=== PATIENT | male | born 1960 | race Caucasian/White ===

== ENCOUNTER 2019-09-15 14:51 | Outpatient (REF) | payer OTHER, SELFPAY ==
[2019-09-17 10:18] LABS: PSA, Screening 0.8 ng/mL (0.0-3.5)
== END 2019-09-15 15:11 ==
LOC: NCHCN 14:51
PROVIDERS: PCP Specialist/Technologist Athletic Trainer; Visit Provider Specialist/Technologist Athletic Trainer
DX: Z12.5 Encounter for screening for malignant neoplasm of prostate (principal)
CPT/HCPCS: 84153

== ENCOUNTER 2019-10-06 08:55 | Outpatient (REF) | payer OTHER, SELFPAY ==
[2019-10-06 12:30] LABS: Calculated LDL 112 mg/dL (<100); Cholesterol 179 mg/dL (<200); Glucose 97 mg/dL (74-106); HDL Cholesterol 51 mg/dL (40-60); Triglyceride 82 mg/dL (<150)
[2019-10-06 13:12] LABS: Vitamin D 25 Total 29.3 ng/ml (30-100)
== END 2019-10-06 09:15 ==
LOC: NCHCN 08:55
PROVIDERS: PCP Specialist/Technologist Athletic Trainer; Visit Provider Specialist/Technologist Athletic Trainer
DX: Z00.00 Encounter for general adult medical examination without abnormal findings (principal); E55.9 Vitamin D deficiency, unspecified; Z13.1 Encounter for screening for diabetes mellitus; Z13.220 Encounter for screening for lipoid disorders
CPT/HCPCS: 80061; 82306; 82947

== ENCOUNTER 2021-10-19 16:11 | Outpatient (REF) | payer MEDICAID, SELFPAY ==
[2021-10-19 20:51] LABS: HCT 44.8 % (40.0-50.0); HGB 15.1 g/dL (13.5-17.5); MCH 29.5 pg (27.0-33.0); MCHC 33.7 % (32.0-36.0); MCV 87.5 fL (80-95); MPV 11.2 fL (8.0-11.0); Platelet Count 191 10^3/uL (130-400); RBC 5.12 10^6/uL (4.36-5.78); RDW 12.3 % (11.8-14.1); RDW-SD 39.8 fL
[2021-10-19 21:41] LABS: ALT 36 U/L (16-63); AST 20 U/L (15-37); Alkaline Phosphatase 54 U/L (46-116); Anion Gap 9.8 mmol/L (3-11); BUN 15 mg/dL (7-18); Bilirubin, Total 0.4 mg/dL (0.2-1.0); CO2 25.2 mmol/L (21.0-32.0); Calcium 8.9 mg/dL (8.5-10.1); Chloride 105 mmol/L (98-107); Glucose 137 mg/dL (74-106); Potassium 4.7 mmol/L (3.5-5.1); Sodium 140 mmol/L (136-145); Total Protein 7.5 g/dL (6.4-8.2)
[2021-10-20 13:59] LABS: Vitamin D 25 Total 22.5 ng/mL (30-100)
[2021-10-20 18:16] LABS: PSA, Screening 1.1 ng/mL (0.0-3.5)
[2021-10-21 10:28] LABS: Hepatitis C Ab w Rflx HCV PCR Negative (Negative)
[2021-10-21 10:41] LABS: HIV-1/2 Ag & Ab Screen Negative (Negative)
== END 2021-10-19 16:12 | disposition home or self-care (01) ==
LOC: NCHCN 16:11
PROVIDERS: PCP Specialist/Technologist Athletic Trainer; Visit Provider Nurse Practitioner Family
DX: Z12.5 Encounter for screening for malignant neoplasm of prostate (principal); Z11.3 Encounter for screening for infections with a predominantly sexual mode of transmission; Z11.59 Encounter for screening for other viral diseases; E55.9 Vitamin D deficiency, unspecified; Z00.00 Encounter for general adult medical examination without abnormal findings
CPT/HCPCS: 80053; 82306; 84153; 85027; 86803; 87389

== ENCOUNTER → 2023-04-11 18:16 | Outpatient (CLI) | payer MEDICAID, SELFPAY ==
--- NOTE | 2023-04-11 | DI.RAD_ITS ---
Exam(s) XR KNEE RT 3V AP,LAT,YURIY EXAM: XR KNEE RT 3V AP,LAT,YURIY CLINICAL HISTORY: TRAUMATIC JOINT EFFUSION, M25.40. TECHNIQUE: 2D digital imaging was performed of the right knee. Three views obtained. AP, lateral an d PA tunnel views were obtained. COMPARISON: No exams were available for comparison FINDINGS: BONES: No acute fracture is present. No bony destructive lesion is seen. JOINTS: The knee is normally aligned. There is a tiny joint effusion. SOFT TISSUE: Normal. IMPRESSION: Very small joint effusion. DATA REPOSITORY: RADIATION DOSE DELIVERED:
== END ==
PROVIDERS: PCP Nurse Practitioner Family; Visit Provider Family Medicine
DX: M25.461 Effusion, right knee (principal)
CPT/HCPCS: 73562

== ENCOUNTER 2023-05-17 15:47 | Outpatient (REF) | payer BC, MEDICAID, SELFPAY ==
[2023-05-17 21:46] LABS: HCT 45.3 % (40.0-50.0); HGB 15.1 g/dL (13.5-17.5); MCH 29.1 pg (27.0-33.0); MCHC 33.3 % (32.0-36.0); MCV 87 fL (80-95); Platelet Count 152 10^3/uL (130-400); RBC 5.19 10^6/uL (4.36-5.78); RDW 12.5 % (11.8-14.1); RDW-SD 39.8 fL; WBC 8.14 10^3/uL (4.4-10.8)
[2023-05-17 22:03] LABS: ALT 40 U/L (16-63); AST 24 U/L (15-37); Albumin 4.3 g/dL (3.4-5.0); Alkaline Phosphatase 56 U/L (46-116); Anion Gap 10.8 mmol/L (3-11); BUN 19 mg/dL (7-18); Bilirubin, Total 0.4 mg/dL (0.2-1.0); CO2 25.2 mmol/L (21.0-32.0); Calcium 9.3 mg/dL (8.5-10.1); Calculated LDL 130 mg/dL (<100); Chloride 103 mmol/L (98-107); Cholesterol 246 mg/dL (<200); Estimated GFR 86.16 (mL/min/1.73m2); Glucose 100 mg/dL (74-106); HDL Cholesterol 42 mg/dL (40-60); Potassium 4.3 mmol/L (3.5-5.1); Sodium 139 mmol/L (136-145); Triglyceride 371 mg/dL (<150)
[2023-05-17 22:22] LABS: Vitamin D 25 Total 26.3 ng/mL (30-100)
[2023-05-18 20:41] LABS: PSA, Screening 0.8 ng/mL (<=4.5)
== END 2023-05-17 15:48 | disposition home or self-care (01) ==
LOC: NCHCN 15:47
PROVIDERS: PCP Nurse Practitioner Family; Visit Provider Nurse Practitioner Family
DX: E55.9 Vitamin D deficiency, unspecified (principal); Z12.5 Encounter for screening for malignant neoplasm of prostate; Z00.00 Encounter for general adult medical examination without abnormal findings
CPT/HCPCS: 80053; 80061; 82306; 84153; 85027

== ENCOUNTER → 2023-07-27 00:59 | Outpatient (CLI) | payer BC, SELFPAY ==
--- NOTE | 2023-07-27 15:15 | DI.MRI_ITS ---
Exam(s) MR LOWER JOINT RT WO EXAM: MR LOWER JOINT RT WO CLINICAL HISTORY: PAIN,INTERNAL DERANGEMENT RT KNEE, M23.91. TECHNIQUE: Multiplanar multisequence MRI was performed. COMPARISON: CR XR KNEE RT 3V AP,LAT,YURIY from 04/11/2023 FINDINGS: BONES: There is no fracture or contusion pattern. JOINTS: A minimal joint effusion is present. Articular cartilage: Patellofemoral joint: Articular cartilage shows minimal irregularity at the lat eral facet. Normal thickness. Medial femoral tibial joint: Articular cartilage is unremarkable. Lateral femoral tibial joint: Articular cartilage is unremarkable. TENDONS: Extensor mechanism: Unremarkable. Medial retinaculum: Unremarkable. Lateral retinaculum: Unremarkable. Popliteus: Unremarkable. MUSCLES: Unremarkable. MENISCI: The medial meniscus is unremarkable. The lateral meniscus is unremarkable. SOFT TISSUES: Unremarkable. LIGAMENTS: Anterior Cruciate: Shows some fluid within the fibers no evidence of a tear. Posterior Cruciate: Unremarkable. Medial Collateral:Unremarkable. Lateral Collateral: Unremarkable. IMPRESSION: Fluid within fibers of ACL without evidence of focal tear. 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 DATA REPOSITORY:
== END ==
PROVIDERS: PCP Nurse Practitioner Family; Visit Provider Student in an Organized Health Care Education/Training Program
DX: M22.42 Chondromalacia patellae, left knee (principal)
CPT/HCPCS: 73721